=== PATIENT | male | born 1960 | race Native Hawaiian/Other Pacific Islander ===

== ENCOUNTER 2020-06-15 08:06 | Outpatient (CLI) | payer BC | END 2020-06-15 22:04 | disposition home or self-care (01) | LOC: CT 08:06 | PROVIDERS: ATTEND Internal Medicine | DX: R31.0 Gross hematuria (principal); R30.0 Dysuria ==

== ENCOUNTER 2020-07-20 07:48 | Outpatient (CLI) | payer BC | END 2020-07-20 21:13 | disposition home or self-care (01) | LOC: RAD 07:48 | PROVIDERS: ATTEND Urology | DX: N20.0 Calculus of kidney (principal) ==

== ENCOUNTER 2020-08-17 07:55 | Outpatient (CLI) | payer BC | END 2020-08-17 21:24 | disposition home or self-care (01) | LOC: RAD 07:55 | PROVIDERS: ATTEND Urology | DX: N20.0 Calculus of kidney (principal) ==

== ENCOUNTER 2021-01-06 07:50 | Outpatient (CLI) | payer BC | END 2021-01-06 19:38 | disposition home or self-care (01) | LOC: CT 07:50 | PROVIDERS: ATTEND Internal Medicine | DX: Q44.6 Cystic disease of liver (principal) | CPT/HCPCS: 36415; 82565; 84520; Q9963 ==